=== PATIENT | female | born 1995 | race Caucasian/White ===

== ENCOUNTER 2021-11-15 16:55 | Inpatient (IN) | payer OTHER ==
[2021-11-15 18:15] VITALS: BMI 36.9
[2021-11-15 18:34] LABS: BASO % 0.7 % (0-2.0); EOS % 0.7 % (0-4.5); HEMOGLOBIN 13.7 GM/dL (10.7-15.3); MCH 30.7 pg (25.7-33.7); MCHC 34.1 g/dl (32.0-36.0); MEAN PLT VOLUME 10.7 fl (7.5-11.1); MONO % 9.2 % (3.8-10.2); NEUT % 68.4 % (42.8-82.8); PLATELET COUNT 245 10^3/uL (134-434); RBC 4.45 M/mm3 (3.60-5.2); RDW 13.6 % (11.6-15.6); RETICULOCYTES 1.79 % (0.5-1.5); WHITE BLOOD COUNT 12.8 K/mm3 (4.0-10.0)
[2021-11-15 18:43] LABS: INR 0.87 (0.83-1.09)
[2021-11-15 18:45] LABS: ACTIVATED PTT 31.3 SECONDS (25.2-36.5)
[2021-11-15 18:48] LABS: CALCIUM 8.4 mg/dL (8.5-10.1)
[2021-11-15 18:49] LABS: BLOOD UREA NITROGEN 12.9 mg/dL (7-18)
[2021-11-15 18:51] LABS: CREATININE 0.7 mg/dL (0.55-1.3); URIC ACID 8.1 mg/dL (2.6-7.2)
[2021-11-15] MEDS: DEXTROSE 5%-LACTATED RINGERS 1,000 ML IV SCH (20:30)
[2021-11-15] MEDS ORDERED: DINOPROSTONE 10 MG VAGINAL SUPPOSITORY VG ONE (21:00)
[2021-11-16] MEDS ORDERED: BUTORPHANOL TARTRATE 2 MG/ML VIAL ONE (08:19)
[2021-11-16] MEDS ORDERED: PROMETHAZINE HCL 25 MG/1 ML VIAL ONE (08:20)
[2021-11-16] MEDS ORDERED: BUTORPHANOL TARTRATE 2 MG/ML VIAL IVPB ONE ×2 (08:45→09:41)
[2021-11-16] MEDS ORDERED: PROMETHAZINE HCL 25 MG/1 ML VIAL IVPB ONE ×2 (08:45→09:41)
[2021-11-16] MEDS: DEXTROSE 5%-LACTATED RINGERS 1,000 ML IV SCH (09:14)
[2021-11-16] MEDS ORDERED: OXYTOCIN 30 UNITS in 0.9% NS 30 UNIT/500 ML INFUS.BAG IVPB ONE (09:39)
[2021-11-16] MEDS ORDERED: OXYTOCIN 30 UNITS in 0.9% NS 30 UNIT/500 ML INFUS.BAG IVPB SCH (09:45)
[2021-11-16] MEDS ORDERED: FENTANYL/BUPIVACAINE/NS/PF - PCEA - 50 ML DISP.SYRIN EP ONE ×5 (09:47→20:28)
[2021-11-16] MEDS ORDERED: BUPIVACAINE HCL/PF 0.25% (2.5MG/ML) 10 ML VIAL ONE ×3 (09:56→16:06)
[2021-11-16] MEDS ORDERED: ELECTROLYTE-148 SOLN 1,000 ML IV SCH (10:00)
[2021-11-16] MEDS: FENTANYL/BUPIVACAINE/NS/PF - PCEA - 50 ML DISP.SYRIN EP SCH ×3 (10:35→17:37)
[2021-11-16] MEDS: ELECTROLYTE-148 SOLN 1,000 ML IV SCH ×2 (11:32→17:50)
[2021-11-16] MEDS ORDERED: NALOXONE HCL 0.4 MG/ML VIAL IVPUSH PRN (11:49)
[2021-11-16] MEDS ORDERED: morphine SULFATE/PF 1 MG/2 ML (2cc Syringe - QUVA) ONE (22:13)
[2021-11-16] MEDS ORDERED: KETAMINE HCL 500 MG/10 ML VIAL ONE (22:38)
[2021-11-16] MEDS ORDERED: LABETALOL HCL 5 MG/1 ML (100MG/20 ML VIAL) ONE (22:44)
[2021-11-16] MEDS ORDERED: MIDAZOLAM HCL 2 MG/2 ML SINGLE DOSE VIAL ONE ×2 (22:48→22:49)
[2021-11-16] MEDS ORDERED: ACETAMINOPHEN 325 MG TABLET (FP) PO PRN ×2 (23:35→23:38)
[2021-11-16] MEDS ORDERED: ONDANSETRON 4 MG/2 ML VIAL IVPUSH PRN (23:35)
[2021-11-16] MEDS ORDERED: IBUPROFEN 800 MG/8 ML IJ IVPB PRN (23:38)
[2021-11-16] MEDS ORDERED: METHYLERGONOVINE MALEATE 0.2 MG/1 ML AMP IM PRN (23:38)
[2021-11-16] MEDS ORDERED: ACETAMINOPHEN 1000 MG/100 ML BAG IVPB PRN (23:41)
[2021-11-16] MEDS ORDERED: OXYTOCIN 20 UNITS in 0.9% NS 20 UNIT/1,000 ML INFUS.BAG IV SCH (23:45)
[2021-11-17] MEDS ORDERED: ACETAMINOPHEN INJECTION 100 ML IVPB ONE (00:03)
[2021-11-17] MEDS ORDERED: ePHEDrine SULFATE 50 MG/1 ML AMPULE ONE (00:11)
[2021-11-17] MEDS ORDERED: NIFEdipine E.R. 30 MG TABLET PO STA (00:28)
[2021-11-17] MEDS ORDERED: NIFEdipine E.R. 30 MG TABLET ONE (00:33)
[2021-11-17] MEDS ORDERED: LABETALOL HCL 200 MG TABLET (FP) PO ONE (00:47)
[2021-11-17] MEDS ORDERED: IBUPROFEN 800 MG/8 ML IJ IVPB ONE (01:16)
[2021-11-17] MEDS ORDERED: LABETALOL HCL 200 MG TABLET (FP) ONE (01:17)
[2021-11-17] MEDS: IBUPROFEN 600 MG TABLET (FP) PO PRN ×3 (07:52→19:57)
[2021-11-17] MEDS: SIMETHICONE 80 MG TAB.CHEW (FP) PO PRN ×2 (07:52→19:57)
[2021-11-17 08:14] LABS: BASO % 0.3 % (0-2.0); EOS % 0.1 % (0-4.5); HEMOGLOBIN 11.4 GM/dL (10.7-15.3); MCH 30.6 pg (25.7-33.7); MCHC 33.5 g/dl (32.0-36.0); MEAN CELL VOLUME 91.5 fl (80-96); MEAN PLT VOLUME 10.6 fl (7.5-11.1); MONO % 8.4 % (3.8-10.2); NEUT % 71.2 % (42.8-82.8); PLATELET COUNT 205 10^3/uL (134-434); RBC 3.72 M/mm3 (3.60-5.2); RDW 13.8 % (11.6-15.6); WHITE BLOOD COUNT 15.2 K/mm3 (4.0-10.0)
[2021-11-17] MEDS: LABETALOL HCL 200 MG TABLET (FP) PO SCH ×2 (08:59→23:29)
[2021-11-17] MEDS: PRENATAL VITAMINS W/ FOLIC ACID TABLET (FP) PO SCH (08:59)
[2021-11-17] MEDS ORDERED: oxyCODONE HCL 5 MG TABLET PO PRN (11:39)
[2021-11-17] MEDS: oxyCODONE HCL 5 MG TABLET PO PRN ×2 (13:53→23:29)
[2021-11-17] MEDS: SENNOSIDES/DOCUSATE COMBO (SENNA PLUS) TABLET (UD) PO PRN (19:57)
[2021-11-17] MEDS ORDERED: BISACODYL 10 MG SUPP.RECT RC PRN (23:39)
[2021-11-18] MEDS: SIMETHICONE 80 MG TAB.CHEW (FP) PO PRN ×4 (05:51→20:42)
[2021-11-18] MEDS: oxyCODONE HCL 5 MG TABLET PO PRN ×3 (05:54→22:11)
[2021-11-18] MEDS: LABETALOL HCL 200 MG TABLET (FP) PO SCH ×2 (09:25→22:07)
[2021-11-18] MEDS: PRENATAL VITAMINS W/ FOLIC ACID TABLET (FP) PO SCH (09:25)
[2021-11-18] MEDS: IBUPROFEN 600 MG TABLET (FP) PO PRN ×2 (13:23→20:42)
[2021-11-18] MEDS: SENNOSIDES/DOCUSATE COMBO (SENNA PLUS) TABLET (UD) PO PRN (20:42)
[2021-11-19] MEDS: IBUPROFEN 600 MG TABLET (FP) PO PRN (08:09)
[2021-11-19] MEDS: SIMETHICONE 80 MG TAB.CHEW (FP) PO PRN (08:09)
[2021-11-19 09:15] VITALS: BP 124/71; PULSE 89; TEMP 97.9
[2021-11-19] MEDS: PRENATAL VITAMINS W/ FOLIC ACID TABLET (FP) PO SCH (09:39)
[2021-11-19] MEDS: LABETALOL HCL 200 MG TABLET (FP) PO SCH (09:39)
== END 2021-11-19 12:45 | disposition home or self-care (01) | DRG 788 ==
LOC: JLDR 16:55 → J3W 11-17 01:50
PROVIDERS: ADMIT Obstetrics & Gynecology; ATTEND Obstetrics & Gynecology
PROC: 3E0P7VZ Introduction of Hormone into Female Reproductive, Via Natural or Artificial Opening (ICD-10-PCS; principal; 2021-11-16)
PROC: 10D00Z1 Extraction of Products of Conception, Low, Open Approach (ICD-10-PCS; 2021-11-16)
DX: O14.94 Unspecified pre-eclampsia, complicating childbirth (principal); O62.0 Primary inadequate contractions; O76 Abnormality in fetal heart rate and rhythm complicating labor and delivery; O69.1XX0 Labor and delivery complicated by cord around neck, with compression, not applicable or unspecified; Z3A.40 40 weeks gestation of pregnancy; Z37.0 Single live birth
CPT/HCPCS: 36415; 80048; 82570; 82977; 83010; 84156; 84450; 84460; 84550; 85025; 85045; 85610; 85730; 86780; 86850; 86900; 86901; 88307-TC; C9803; U0003; U0005

== ENCOUNTER 2023-07-16 06:00 | Inpatient (IN) | payer OTHER ==
[2023-07-16] MEDS ORDERED: CITRIC ACID/SODIUM CITRATE 30 ML UNIT-DOSE CUP PO ONE (07:00)
[2023-07-16] MEDS ORDERED: ELECTROLYTE-148 SOLN 500 ML IV ONE (07:00)
[2023-07-16] MEDS ORDERED: TRIAMCINOLONE ACET 40MG/1ML VIAL IM ONE (07:30)
[2023-07-16] MEDS ORDERED: ELECTROLYTE-148 SOLN 500 ML IV SCH (07:30)
[2023-07-16] MEDS ORDERED: morphine SULFATE/PF 1 MG/2 ML (2cc Syringe - QUVA) ONE (07:37)
[2023-07-16] MEDS ORDERED: FENTANYL CITRATE/PF 50 MCG/ML VIAL ONE (07:37)
[2023-07-16 07:41] VITALS: BMI 34.0
[2023-07-16] MEDS ORDERED: PHENYLEPHRINE HCL 10 MG/1 ML SINGLE DOSE VIAL ONE (09:24)
[2023-07-16] MEDS ORDERED: ONDANSETRON 4 MG/2 ML VIAL ONE (09:24)
[2023-07-16] MEDS ORDERED: OXYTOCIN 10 UNITS/ML VIAL ONE (09:24)
[2023-07-16] MEDS ORDERED: KETOROLAC TROMETHAMINE 30 MG/1 ML VIAL ONE (09:24)
[2023-07-16] MEDS ORDERED: ceFAZolin SODIUM 1 GM VIAL ONE (09:24)
[2023-07-16] MEDS ORDERED: SIMETHICONE 80 MG TAB.CHEW (FP) PO PRN (09:45)
[2023-07-16] MEDS ORDERED: ONDANSETRON 4 MG/2 ML VIAL IVPB PRN (09:45)
[2023-07-16] MEDS ORDERED: ONDANSETRON 4 MG/2 ML VIAL IVPUSH PRN ×2 (09:57)
[2023-07-16] MEDS ORDERED: morphine SULFATE/PF 1 MG/2 ML (2cc Syringe - QUVA) SPIN ONE (09:57)
[2023-07-16] MEDS ORDERED: CEFAZOLIN 2 GM in DEXTROSE 5%-WATER - 50 ML IVPB SCH (10:00)
[2023-07-16] MEDS ORDERED: LACTATED RINGERS SOLUTION 1,000 ML IV SCH (10:00)
[2023-07-16] MEDS ORDERED: ACETAMINOPHEN 1000 MG/100 ML BAG IVPB SCH (10:00)
[2023-07-16] MEDS ORDERED: KETOROLAC TROMETHAMINE 30 MG/1 ML VIAL IVPUSH SCH (10:00)
[2023-07-16] MEDS: ACETAMINOPHEN 1000 MG/100 ML BAG IVPB SCH ×3 (10:03→21:48)
[2023-07-16] MEDS ORDERED: OXYTOCIN 20 UNITS in 0.9% NS 20 UNIT/1,000 ML INFUS.BAG IV ONE (10:54)
[2023-07-16] MEDS: OXYTOCIN 20 UNITS in 0.9% NS 20 UNIT/1,000 ML INFUS.BAG IV SCH (10:58)
[2023-07-16] MEDS: CEFAZOLIN SODIUM 2 GM in DEXTROSE 5%-WATER 100 ML IVPB SCH (17:49)
[2023-07-16] MEDS: IBUPROFEN 800 MG/8 ML IJ IVPB SCH (18:29)
[2023-07-16] MEDS: SENNOSIDES/DOCUSATE COMBO (SENNA PLUS) TABLET (UD) PO SCH (21:53)
[2023-07-17] MEDS: CEFAZOLIN SODIUM 2 GM in DEXTROSE 5%-WATER 100 ML IVPB SCH (00:59)
[2023-07-17] MEDS: IBUPROFEN 800 MG/8 ML IJ IVPB SCH ×2 (01:37→09:19)
[2023-07-17] MEDS: OXYTOCIN 20 UNITS in 0.9% NS 20 UNIT/1,000 ML INFUS.BAG IV SCH (01:52)
[2023-07-17] MEDS: ACETAMINOPHEN 1000 MG/100 ML BAG IVPB SCH (04:54)
[2023-07-17 08:21] LABS: BASO % 0.3 % (0-2.0); EOS % 0.3 % (0-4.5); HEMATOCRIT 35.5 % (32.4-45.2); HEMOGLOBIN 12.1 GM/dL (10.7-15.3); LYMPH % 17.9 % (8-40); MCH 30.5 pg (25.7-33.7); MCHC 34.1 g/dl (32.0-36.0); MEAN CELL VOLUME 89.4 fl (80-96); MEAN PLT VOLUME 8.4 fl (7.5-11.1); MONO % 5.1 % (3.8-10.2); NEUT % 76.4 % (42.8-82.8); PLATELET COUNT 258 10^3/uL (134-434); RBC 3.97 M/mm3 (3.60-5.2); RDW 13.8 % (11.6-15.6); WHITE BLOOD COUNT 16.5 K/mm3 (4.0-10.0)
[2023-07-17] MEDS ORDERED: oxyCODONE HCL 5 MG TABLET PO PRN (09:00)
[2023-07-17] MEDS ORDERED: ACETAMINOPHEN 500 MG TABLET (FP) PO PRN (09:45)
[2023-07-17] MEDS ORDERED: BISACODYL 10 MG SUPP.RECT RC PRN (09:45)
[2023-07-17] MEDS: IBUPROFEN 600 MG TABLET (FP) PO PRN ×2 (16:21→21:15)
[2023-07-17 21:11] VITALS: RESP 18
[2023-07-17] MEDS: SENNOSIDES/DOCUSATE COMBO (SENNA PLUS) TABLET (UD) PO SCH (21:15)
[2023-07-18] MEDS: IBUPROFEN 600 MG TABLET (FP) PO PRN (07:47)
[2023-07-18 07:54] VITALS: BP 108/67; PULSE 62; TEMP 97.8
== END 2023-07-18 12:15 | disposition home or self-care (01) | DRG 788 ==
LOC: JLDR 06:00 → J3W 11:50
PROVIDERS: ADMIT Specialist; ATTEND Specialist
PROC: 10D00Z1 Extraction of Products of Conception, Low, Open Approach (ICD-10-PCS; principal; 2023-07-16)
DX: O34.211 Maternal care for low transverse scar from previous cesarean delivery (principal); O14.90 Unspecified pre-eclampsia, unspecified trimester; L91.0 Hypertrophic scar; Z3A.38 38 weeks gestation of pregnancy; Z37.0 Single live birth
CPT/HCPCS: 36415; 85025; 88304-TC; 88307-TC; 94010